=== PATIENT | male | born 1945 | race Caucasian/White ===

== ENCOUNTER 2017-11-09 08:05 | Emergency (ER) | payer OTHER ==
[~2017-11-09] VITALS: Ht 180.3 cm; Wt 90.7 kg
[~2017-11-09 08:05] MED LIST: HUMULIN N100 U/ML; HUMULIN R500 U/ML; LOTREL 10-20 MG1 CAP
== END 2017-11-09 17:00 | disposition home or self-care (01) ==
LOC: ER 08:05
DX: G45.8 Other transient cerebral ischemic attacks and related syndromes (principal); I63.59 Cerebral infarction due to unspecified occlusion or stenosis of other cerebral artery; R53.1 Weakness; E11.65 Type 2 diabetes mellitus with hyperglycemia

== ENCOUNTER 2017-11-10 02:20 | Inpatient (IN) | payer OTHER ==
[~2017-11-10] VITALS: Ht 180.3 cm; Wt 95.3 kg
[2017-11-17] MEDS ORDERED: COUMADIN3 MG PO (10:34)
[2017-11-17] MEDS ORDERED: LOSARTAN-HCTZ1 EAC2 PO (10:34)
[2017-11-17] MEDS ORDERED: LIPITOR40 MG PO (10:34)
== END 2017-11-17 14:00 | DRG 64 ==
LOC: ER 02:20 → MEDJ 15:22
PROC: B345ZZZ Ultrasonography of Bilateral Common Carotid Arteries (ICD-10-PCS; principal; 2017-11-10)
PROC: B348ZZZ Ultrasonography of Bilateral Internal Carotid Arteries (ICD-10-PCS; 2017-11-10)
PROC: B246ZZZ Ultrasonography of Right and Left Heart (ICD-10-PCS; 2017-11-10)
PROC: B030ZZZ Magnetic Resonance Imaging (MRI) of Brain (ICD-10-PCS; 2017-11-10)
PROC: B33RZZZ Magnetic Resonance Imaging (MRI) of Intracranial Arteries (ICD-10-PCS; 2017-11-11)
DX: I63.332 Cerebral infarction due to thrombosis of left posterior cerebral artery (principal); I63.011 Cerebral infarction due to thrombosis of right vertebral artery; I63.02 Cerebral infarction due to thrombosis of basilar artery; I16.9 Hypertensive crisis, unspecified; G81.94 Hemiplegia, unspecified affecting left nondominant side; L97.518 Non-pressure chronic ulcer of other part of right foot with other specified severity; R47.81 Slurred speech; I10 Essential (primary) hypertension; R42 Dizziness and giddiness; E11.621 Type 2 diabetes mellitus with foot ulcer
CPT/HCPCS: 70544; 70551

== ENCOUNTER 2018-02-16 11:01 | Inpatient (IN) | payer OTHER ==
[~2018-02-16] VITALS: Ht 180.3 cm; Wt 86.2 kg
[~2018-02-16 11:01] MED LIST changes: +COUMADIN3 MG PO; +LIPITOR40 MG PO; +LOSARTAN-HCTZ1 EAC2 PO
[2018-02-16] MEDS ORDERED: PRAVASTATIN SOD10 MG PO (11:19)
[2018-02-16] MEDS ORDERED: DAFLONEX-XL TA1 EACH (11:19)
[2018-02-16] MEDS ORDERED: AMOX-CLAV 875-1 EACH (11:20)
[2018-02-16] MEDS ORDERED: COZAAR25 MG PO (11:20)
[2018-03-09] MEDS ORDERED: LOSARTAN POTAS100 MG PO (13:37)
[2018-03-09] MEDS ORDERED: Lantus 1000 UNITS/10 SUBCUTANEO (13:37)
[2018-03-09] MEDS ORDERED: HumaLOG 100 UNIT/1 M SUBCUTANEO (13:37)
[2018-03-09] MEDS ORDERED: AMLODIPINE BESY10 MG PO (13:37)
[2018-03-09] MEDS ORDERED: ALPRAZOLAM0.25 MG PO (13:37)
[2018-03-09] MEDS ORDERED: CARdura 2MG TABLET PO (13:37)
== END 2018-03-09 19:25 | DRG 617 ==
LOC: ER 11:01 → MEDJ 21:00
PROVIDERS: Surgery
PROC: BQ3MZZZ Magnetic Resonance Imaging (MRI) of Left Foot (ICD-10-PCS; 2018-02-17)
PROC: 0Y6Q0Z0 Detachment at Left 1st Toe, Complete, Open Approach (ICD-10-PCS; principal; 2018-03-01 10:15)
PROC: 05H633Z Insertion of Infusion Device into Left Subclavian Vein, Percutaneous Approach (ICD-10-PCS; 2018-03-09)
DX: E11.69 Type 2 diabetes mellitus with other specified complication (principal); L03.116 Cellulitis of left lower limb; M86.172 Other acute osteomyelitis, left ankle and foot; I69.351 Hemiplegia and hemiparesis following cerebral infarction affecting right dominant side; B37.49 Other urogenital candidiasis; I16.9 Hypertensive crisis, unspecified; E11.52 Type 2 diabetes mellitus with diabetic peripheral angiopathy with gangrene; I96 Gangrene, not elsewhere classified; L97.528 Non-pressure chronic ulcer of other part of left foot with other specified severity; E11.628 Type 2 diabetes mellitus with other skin complications; E11.65 Type 2 diabetes mellitus with hyperglycemia; L03.032 Cellulitis of left toe; I10 Essential (primary) hypertension; B96.4 Proteus (mirabilis) (morganii) as the cause of diseases classified elsewhere; B95.2 Enterococcus as the cause of diseases classified elsewhere; B95.62 Methicillin resistant Staphylococcus aureus infection as the cause of diseases classified elsewhere; R42 Dizziness and giddiness; E11.621 Type 2 diabetes mellitus with foot ulcer

== ENCOUNTER → 2018-04-26 | Outpatient (CLI) | payer OTHER ==
[~2018-04-26] MED LIST changes: +ALPRAZOLAM0.25 MG PO; +AMLODIPINE BESY10 MG PO; +AMOX-CLAV 875-1 EACH; +CARdura 2MG TABLET PO; +COZAAR25 MG PO; +DAFLONEX-XL TA1 EACH; +HumaLOG 100 UNIT/1 M SUBCUTANEO; +LOSARTAN POTAS100 MG PO; +Lantus 1000 UNITS/10 SUBCUTANEO; +PRAVASTATIN SOD10 MG PO
== END | disposition home or self-care (01) ==
LOC: WOUND MED 08:41
DX: E11.621 Type 2 diabetes mellitus with foot ulcer (principal); L97.521 Non-pressure chronic ulcer of other part of left foot limited to breakdown of skin; I87.2 Venous insufficiency (chronic) (peripheral)
CPT/HCPCS: G0463; A4554; A4930; A6021; A6216; A6219

== ENCOUNTER → 2018-07-19 | Outpatient (CLI) | payer OTHER | END | disposition home or self-care (01) | LOC: WOUND MED 11:12 | DX: E11.622 Type 2 diabetes mellitus with other skin ulcer (principal); L02.212 Cutaneous abscess of back [any part, except buttock and flank] | CPT/HCPCS: 10060; G0463; A4554; A4930; A6196; A6216; A6219 ==

== ENCOUNTER → 2018-07-26 | Outpatient (CLI) | payer OTHER | END | disposition home or self-care (01) | LOC: WOUND MED 09:46 | DX: E11.622 Type 2 diabetes mellitus with other skin ulcer (principal); L02.212 Cutaneous abscess of back [any part, except buttock and flank] | CPT/HCPCS: G0463; A4554; A4930; A6196; A6216; A6219 ==

== ENCOUNTER → 2018-08-02 | Outpatient (CLI) | payer OTHER | END | disposition home or self-care (01) | LOC: WOUND MED 11:08 | DX: E11.622 Type 2 diabetes mellitus with other skin ulcer (principal); L02.212 Cutaneous abscess of back [any part, except buttock and flank] | CPT/HCPCS: A4554; A4930; A6216; G0463 ==

== ENCOUNTER 2023-01-18 08:47 | Inpatient (IN) | payer OTHER ==
[~2023-01-18] VITALS: Ht 180.3 cm; Wt 84.4 kg
[2023-01-26] MEDS ORDERED: LEVOFLOXACIN750 MG PO (12:03)
[2023-01-26] MEDS ORDERED: INTESTINEX680 M1 PO (12:05)
[2023-01-26] MEDS ORDERED: PROSCAR5 MG PO (12:08)
[2023-01-26] MEDS ORDERED: TAMS0.4C PO (12:08)
== END 2023-01-26 14:57 | disposition home or self-care (01) | DRG 166 ==
LOC: ER 08:47 → MEDJ 17:50 → SEC-K 19:50 → MEDJ 22:06
PROVIDERS: ADMIT Internal Medicine; ATTEND Internal Medicine
PROC: 8E0ZXY6 Isolation (ICD-10-PCS; 2023-01-18)
PROC: BB24ZZZ Computerized Tomography (CT Scan) of Bilateral Lungs (ICD-10-PCS; 2023-01-18)
PROC: 4A12X4Z Monitoring of Cardiac Electrical Activity, External Approach (ICD-10-PCS; 2023-01-18)
PROC: 0JBR0ZZ Excision of Left Foot Subcutaneous Tissue and Fascia, Open Approach (ICD-10-PCS; principal; 2023-01-20)
PROC: BW4GZZZ Ultrasonography of Pelvic Region (ICD-10-PCS; 2023-01-21)
PROC: BT43ZZZ Ultrasonography of Bilateral Kidneys (ICD-10-PCS; 2023-01-21)
PROC: 02HV33Z Insertion of Infusion Device into Superior Vena Cava, Percutaneous Approach (ICD-10-PCS; 2023-01-21)
PROC: 0JBR0ZZ Excision of Left Foot Subcutaneous Tissue and Fascia, Open Approach (ICD-10-PCS; 2023-01-26)
DX: U07.1 COVID-19 (principal); J12.82 Pneumonia due to coronavirus disease 2019; L89.623 Pressure ulcer of left heel, stage 3; E11.52 Type 2 diabetes mellitus with diabetic peripheral angiopathy with gangrene; I96 Gangrene, not elsewhere classified; L03.116 Cellulitis of left lower limb; J98.11 Atelectasis; I69.351 Hemiplegia and hemiparesis following cerebral infarction affecting right dominant side; N41.0 Acute prostatitis; N32.0 Bladder-neck obstruction; J98.8 Other specified respiratory disorders; E11.621 Type 2 diabetes mellitus with foot ulcer; E11.628 Type 2 diabetes mellitus with other skin complications; E11.65 Type 2 diabetes mellitus with hyperglycemia; B37.2 Candidiasis of skin and nail; B95.2 Enterococcus as the cause of diseases classified elsewhere; L89.152 Pressure ulcer of sacral region, stage 2; I25.10 Atherosclerotic heart disease of native coronary artery without angina pectoris; I10 Essential (primary) hypertension; L40.8 Other psoriasis; M25.511 Pain in right shoulder; R33.8 Other retention of urine; F17.210 Nicotine dependence, cigarettes, uncomplicated; Z79.4 Long term (current) use of insulin; Z89.611 Acquired absence of right leg above knee; Z89.412 Acquired absence of left great toe; Z74.01 Bed confinement status

== ENCOUNTER 2023-09-21 16:08 | Inpatient (IN) | payer OTHER ==
[~2023-09-21] VITALS: Ht 165.1 cm; Wt 128.8 kg
[~2023-09-21 16:08] MED LIST changes: +INTESTINEX680 M1 PO; +LEVOFLOXACIN750 MG PO; +PROSCAR5 MG PO; +TAMS0.4C PO
[2023-09-21 16:57] LABS: HEMATOCRIT 32.8 % (39.0-48.0); MEAN CELL VOLUME 81.5 fL (80.0-100.00); MEAN CORPUSCULAR HEMOGLOBIN 27.2 pg (27.00-32.0); MEAN CORPUSCULAR HGB CONC 33.4 g/dl (32.0-36.0); PH,URINE 7.5 (5.0-8.0); PLATELET COUNT 287 K/uL (150-450); RED BLOOD COUNT 4.03 M/uL (4.00-6.00); URINE APPEARANCE Cloudy; URINE BILIRRUBIN Negative (NEGATIVE); URINE BLOOD Moderate; URINE COLOR Yellow; URINE LEUKOCYTE Moderate; URINE NITRATE Positive
[2023-09-21 16:58] LABS: URINE RBC 125.3 uL (0.0-20.8); URINE WBC 420.5 uL (0.0-23.2)
[2023-09-21 17:01] LABS: URINE BACTERIA > 9821.5 uL (0.0-1933); URINE GLUCOSE >=1000 MG/DL (NEGATIVE); URINE PROTEIN 100 (NEGATIVE)
[2023-09-21 17:47] LABS: CALCIUM 8.7 mg/dL (8.5-10.1); CREATININE SERUM 0.97 mg/dL (0.70-1.30); GFR 75.05; POTASSIUM 3.08 mEq/L (3.5-5.1)
[2023-09-21 20:35] LABS: ABG PH 7.501 (7.35-7.45); ABG PO2 75.9 mmHg (80-100); ABG pCO2 33.3 mmHg (35-45); BASE EXCESS 2.8 mmol/l; BICARBONATE 25.4 mmol/l (23-25); SaO2 96.4 %; Tco2 26.4 mmol/l; allen test SATISFACTORY; o2 21 %; puncture site RADIAL RIGHT
[2023-09-22 00:50] LABS: INR 1.14; PARTIAL THROMBOPLASTIN TIME 31.7 SECONDS (22.0-34.0); PROTHROMBIN TIME 11.9 SECONDS (9.0-11.5)
[2023-09-23 07:13] LABS: ALBUMIN 3.1 gm/dL (3.4-5.0); BILIRUBIN TOTAL 0.65 mg/dL (0.3-1.2); CALCIUM 8.8 mg/dL (8.5-10.1); CREATININE SERUM 0.81 mg/dL (0.70-1.30); GFR 92.4; MAGNESIUM 2.2 mg/dL (1.8-2.4); POTASSIUM 3.74 mEq/L (3.5-5.1); TOTAL PROTEIN 7.1 gm/dL (6.4-8.2)
[2023-09-23 07:22] LABS: HEMATOCRIT 32.3 % (39.0-48.0); MEAN CELL VOLUME 80.6 fL (80.0-100.00); MEAN CORPUSCULAR HEMOGLOBIN 27.5 pg (27.00-32.0); MEAN CORPUSCULAR HGB CONC 34.1 g/dl (32.0-36.0); RED BLOOD COUNT 4.01 M/uL (4.00-6.00); RED CELL DISTRIBUTION WIDTH 15.8 % (11.5-14.5)
[2023-09-23 08:07] LABS: PLATELET COUNT 124 K/uL (150-450)
[2023-09-26 08:09] LABS: HEMATOCRIT 30.3 % (39.0-48.0); MEAN CELL VOLUME 82.1 fL (80.0-100.00); MEAN CORPUSCULAR HGB CONC 33.4 g/dl (32.0-36.0); PLATELET COUNT 252 K/uL (150-450); RED BLOOD COUNT 3.69 M/uL (4.00-6.00); RED CELL DISTRIBUTION WIDTH 15.3 % (11.5-14.5)
[2023-09-26 08:20] LABS: HEMOGLOBIN 10.1 g/dL (13-16.00); MEAN CORPUSCULAR HEMOGLOBIN 27.3 pg (27.00-32.0)
[2023-09-26 08:46] LABS: ALBUMIN 2.8 gm/dL (3.4-5.0); BILIRUBIN TOTAL 0.49 mg/dL (0.3-1.2); CALCIUM 8.6 mg/dL (8.5-10.1); CREATININE SERUM 0.63 mg/dL (0.70-1.30); GFR 123.49; GLOBULINA 3.7 G/DL (2.4-3.5); MAGNESIUM 1.8 mg/dL (1.8-2.4); PHOSPHOROUS 2.9 mg/dL (2.5-4.9); POTASSIUM 3.26 mEq/L (3.5-5.1); TOTAL PROTEIN 6.5 gm/dL (6.4-8.2)
[2023-09-28 08:34] LABS: HEMATOCRIT 31.8 % (39.0-48.0); HEMOGLOBIN 10.9 g/dL (13-16.00); MEAN CELL VOLUME 82.8 fL (80.0-100.00); MEAN CORPUSCULAR HEMOGLOBIN 28.4 pg (27.00-32.0); MEAN CORPUSCULAR HGB CONC 34.3 g/dl (32.0-36.0); PLATELET COUNT 293 K/uL (150-450); RED BLOOD COUNT 3.84 M/uL (4.00-6.00); RED CELL DISTRIBUTION WIDTH 15.6 % (11.5-14.5)
[2023-09-28 09:48] LABS: BILIRUBIN TOTAL 0.44 mg/dL (0.3-1.2); CALCIUM 9.1 mg/dL (8.5-10.1); CREATININE SERUM 0.68 mg/dL (0.70-1.30); GFR 113.07; GLOBULINA 3.9 G/DL (2.4-3.5); MAGNESIUM 1.6 mg/dL (1.8-2.4); PHOSPHOROUS 2.3 mg/dL (2.5-4.9); POTASSIUM 4.1 mEq/L (3.5-5.1); TOTAL PROTEIN 6.9 gm/dL (6.4-8.2)
[2023-09-30 07:38] LABS: HEMATOCRIT 30.7 % (39.0-48.0); HEMOGLOBIN 10.2 g/dL (13-16.00); MEAN CORPUSCULAR HEMOGLOBIN 26.9 pg (27.00-32.0); MEAN CORPUSCULAR HGB CONC 33.2 g/dl (32.0-36.0); PLATELET COUNT 219 K/uL (150-450); RED BLOOD COUNT 3.78 M/uL (4.00-6.00); RED CELL DISTRIBUTION WIDTH 15.8 % (11.5-14.5)
[2023-09-30 07:41] LABS: ERYTHROCYTE SEDIMENTATION RATE 81 mm/hr
[2023-09-30 08:07] LABS: BILIRUBIN TOTAL 0.4 mg/dL (0.3-1.2); CALCIUM 8.9 mg/dL (8.5-10.1); CREATININE SERUM 0.59 mg/dL (0.70-1.30); GFR 133.2; GLOBULINA 3.6 G/DL (2.4-3.5); MAGNESIUM 1.9 mg/dL (1.8-2.4); PHOSPHOROUS 2.7 mg/dL (2.5-4.9); POTASSIUM 3.79 mEq/L (3.5-5.1); TOTAL PROTEIN 6.6 gm/dL (6.4-8.2)
[2023-09-30 08:17] LABS: C-REACTIVE PROTEIN 1.1 MG/DL (0.00-0.29)
[2023-09-30] MEDS ORDERED: TAMS0.4C PO (11:44)
[2023-09-30] MEDS ORDERED: LIPITOR40 M1 PO (11:45)
[2023-09-30] MEDS ORDERED: LOSARTAN POTAS100 MG PO (11:45)
[2023-09-30] MEDS ORDERED: AMLODIPINE BESYL5 MG PO (11:45)
[2023-09-30] MEDS ORDERED: ST. JOSEPH ASPI81 M2 PO (11:45)
[2023-09-30] MEDS ORDERED: LOVENOX40 MG/0.4 SUBCUTANEO (11:45)
[2023-09-30] MEDS ORDERED: Lantus 1000 UNITS/10 SUBCUTANEO (11:46)
[2023-09-30] MEDS ORDERED: INSULIN LI100 UNIT/1 SUBCUTANEO (11:46)
[2023-09-30] MEDS ORDERED: PANTOPRAZOLE SO40 MG PO (11:46)
[2023-09-30] MEDS ORDERED: INTEGRA PLUS C1 EACH PO (11:48)
[2023-09-30] MEDS ORDERED: CEFTRIAXONE2 GM IV (11:48)
[2023-09-30] MEDS ORDERED: COLACE100 MG PO (11:49)
== END 2023-10-01 14:21 | DRG 872 ==
LOC: ER 16:08 → SURH 22:16 → MEDJ 09-28 13:53 → MEDI 09-30 08:31
PROVIDERS: General Practice; ADMIT Internal Medicine; ATTEND Internal Medicine
PROC: BW28ZZZ Computerized Tomography (CT Scan) of Head (ICD-10-PCS; principal; 2023-09-21)
PROC: BQ3FYZZ Magnetic Resonance Imaging (MRI) of Left Lower Leg using Other Contrast (ICD-10-PCS; 2023-09-23)
PROC: B24BZZZ Ultrasonography of Heart with Aorta (ICD-10-PCS; 2023-09-28)
DX: A41.9 Sepsis, unspecified organism (principal); N39.0 Urinary tract infection, site not specified; M86.8X7 Other osteomyelitis, ankle and foot; I69.351 Hemiplegia and hemiparesis following cerebral infarction affecting right dominant side; L97.429 Non-pressure chronic ulcer of left heel and midfoot with unspecified severity; E16.2 Hypoglycemia, unspecified; E78.5 Hyperlipidemia, unspecified; E87.6 Hypokalemia; E11.621 Type 2 diabetes mellitus with foot ulcer; D64.9 Anemia, unspecified; E11.65 Type 2 diabetes mellitus with hyperglycemia; Z79.4 Long term (current) use of insulin; E11.69 Type 2 diabetes mellitus with other specified complication; B95.61 Methicillin susceptible Staphylococcus aureus infection as the cause of diseases classified elsewhere; I25.10 Atherosclerotic heart disease of native coronary artery without angina pectoris; R41.82 Altered mental status, unspecified; I73.9 Peripheral vascular disease, unspecified; I87.8 Other specified disorders of veins

== ENCOUNTER 2023-11-20 08:16 | Emergency (ER) | payer OTHER ==
[~2023-11-20] VITALS: Ht 180.3 cm; Wt 73.9 kg
[~2023-11-20 08:16] MED LIST changes: +AMLODIPINE BESYL5 MG PO; +CEFTRIAXONE2 GM IV; +COLACE100 MG PO; +INSULIN LI100 UNIT/1 SUBCUTANEO; +INTEGRA PLUS C1 EACH PO; +LIPITOR40 M1 PO; +LOVENOX40 MG/0.4 SUBCUTANEO; +PANTOPRAZOLE SO40 MG PO; +ST. JOSEPH ASPI81 M2 PO
[2023-11-20 09:44] LABS: HEMATOCRIT 31.4 % (39.0-48.0); HEMOGLOBIN 10.7 g/dL (13-16.00); MEAN CELL VOLUME 82.7 fL (80.0-100.00); MEAN CORPUSCULAR HEMOGLOBIN 28.2 pg (27.00-32.0); MEAN CORPUSCULAR HGB CONC 34.1 g/dl (32.0-36.0); PLATELET COUNT 246 K/uL (150-450); RED BLOOD COUNT 3.79 M/uL (4.00-6.00)
[2023-11-20 09:51] LABS: URINE APPEARANCE Turbid; URINE BILIRRUBIN Negative (NEGATIVE); URINE BLOOD Moderate; URINE COLOR Orange; URINE LEUKOCYTE Large; URINE NITRATE Positive
[2023-11-20 10:08] LABS: ALBUMIN 3.2 gm/dL (3.4-5.0); ALKALINE PHOSPHATASE 137 U/L (50-136); ALT/SGPT 26 U/L (12-78); ANION GAP 10 (10.0-20.0); AST/SGOT 18 U/L (15-37); BILIRUBIN TOTAL 0.59 mg/dL (0.3-1.2); BLOOD UREA NITROGEN 12 mg/dL (7-18); BUN CREA RATIO 12 (7.0-25.0); CARBON DIOXIDE 25 mEq/L (21-32); CHLORIDE 107 mmol/L (98-107); CREATININE SERUM 0.99 mg/dL (0.70-1.30); GLUCOSE FASTING 123 mg/dL (65-100); OSMOLALITY SERUM 277 MOSM/KG (275-295); POTASSIUM 4.22 mEq/L (3.5-5.1); SODIUM 138 mmol/L (136-145); TOTAL PROTEIN 7.8 gm/dL (6.4-8.2)
[2023-11-20 10:14] LABS: URINE BACTERIA 522.8 uL (0.0-1933); URINE EPITHELIAL CELLS 22.1 uL (0.0-38.8); URINE RBC 52.5 uL (0.0-20.8)
[2023-11-20 10:21] LABS: BILIRUBIN,CONJUGATED < 0.10 mg/dL (0.0-0.2); BILIRUBIN,UNCONJUGATED 0.49 mg/dL (0.0-0.6)
[2023-11-20 10:35] LABS: URINE CRYSTALS NEGATIVE /HPF; URINE GLUCOSE 100 MG/DL (NEGATIVE); URINE MUCUS HEAVY; URINE PROTEIN 100 (NEGATIVE); URINE WBC > 5548.3 uL (0.0-23.2); URINE YEAST NEGATIVE /hpf
== END 2023-11-20 12:05 | disposition home or self-care (01) ==
LOC: ER 08:16
PROVIDERS: General Practice
DX: N39.0 Urinary tract infection, site not specified (principal); R10.2 Pelvic and perineal pain; R10.9 Unspecified abdominal pain; I10 Essential (primary) hypertension; E11.9 Type 2 diabetes mellitus without complications; Z79.4 Long term (current) use of insulin
CPT/HCPCS: 36415; 96365; 99282; J0696

== ENCOUNTER 2023-11-23 10:59 | Inpatient (IN) | payer OTHER ==
[~2023-11-23] VITALS: Ht 180.3 cm; Wt 73.9 kg
[2023-11-23 13:24] LABS: HEMATOCRIT 32.6 % (39.0-48.0); HEMOGLOBIN 11.1 g/dL (13-16.00); MEAN CELL VOLUME 81.2 fL (80.0-100.00); MEAN CORPUSCULAR HEMOGLOBIN 27.6 pg (27.00-32.0); PLATELET COUNT 233 K/uL (150-450); RED BLOOD COUNT 4.01 M/uL (4.00-6.00); RED CELL DISTRIBUTION WIDTH 15.5 % (11.5-14.5)
[2023-11-23 14:09] LABS: CALCIUM 9.1 mg/dL (8.5-10.1); CREATININE SERUM 1.17 mg/dL (0.70-1.30); GFR 60.45; POTASSIUM 3.9 mEq/L (3.5-5.1)
[2023-11-23 14:11] LABS: PH,URINE 5.5 (5.0-8.0); URINE APPEARANCE Turbid; URINE BILIRRUBIN Negative (NEGATIVE); URINE BLOOD Large; URINE COLOR Yellow; URINE GLUCOSE Negative (NEGATIVE); URINE LEUKOCYTE Large; URINE NITRATE Negative; URINE UROBILINOGEN 0.2 E.U./dl
[2023-11-23 14:13] LABS: URINE BACTERIA 2931.9 uL (0.0-1933); URINE EPITHELIAL CELLS 56.3 uL (0.0-38.8); URINE RBC 1452.3 uL (0.0-20.8)
[2023-11-23 15:09] LABS: URINE PROTEIN 100 (NEGATIVE); URINE WBC > 5548.3 uL (0.0-23.2)
[2023-11-23 21:57] LABS: INR 1.12; PARTIAL THROMBOPLASTIN TIME 35.1 SECONDS (22.0-34.0); PROTHROMBIN TIME 11.7 SECONDS (9.0-11.5)
[2023-11-25 14:38] LABS: HEMATOCRIT 31.5 % (39.0-48.0); HEMOGLOBIN 10.6 g/dL (13-16.00); MEAN CELL VOLUME 82.9 fL (80.0-100.00); MEAN CORPUSCULAR HEMOGLOBIN 27.9 pg (27.00-32.0); MEAN CORPUSCULAR HGB CONC 33.7 g/dl (32.0-36.0); PLATELET COUNT 239 K/uL (150-450); RED CELL DISTRIBUTION WIDTH 15.7 % (11.5-14.5)
[2023-11-25 15:22] LABS: ALBUMIN 3.2 gm/dL (3.4-5.0); BILIRUBIN TOTAL 0.43 mg/dL (0.3-1.2); CREATININE SERUM 1.03 mg/dL (0.70-1.30); GFR 70.03; GLOBULINA 3.9 G/DL (2.4-3.5); POTASSIUM 4.08 mEq/L (3.5-5.1); TOTAL PROTEIN 7.1 gm/dL (6.4-8.2)
[2023-11-25 15:48] LABS: C-REACTIVE PROTEIN 3.66 MG/DL (0.00-0.29); PROSTATIC SPECIFIC ANTIGEN 5.96 NG/ML (0.010-4.00)
[2023-11-29 06:08] LABS: HEMOGLOBIN 10.4 g/dL (13-16.00); MEAN CELL VOLUME 81.4 fL (80.0-100.00); MEAN CORPUSCULAR HEMOGLOBIN 27.2 pg (27.00-32.0); MEAN CORPUSCULAR HGB CONC 33.5 g/dl (32.0-36.0); PLATELET COUNT 255 K/uL (150-450); RED BLOOD COUNT 3.81 M/uL (4.00-6.00); RED CELL DISTRIBUTION WIDTH 15.4 % (11.5-14.5)
[2023-11-29 06:41] LABS: ALBUMIN 2.9 gm/dL (3.4-5.0); BILIRUBIN TOTAL 0.41 mg/dL (0.3-1.2); CALCIUM 8.8 mg/dL (8.5-10.1); CREATININE SERUM 0.96 mg/dL (0.70-1.30); GFR 75.95; GLOBULINA 3.8 G/DL (2.4-3.5); MAGNESIUM 1.8 mg/dL (1.8-2.4); PHOSPHOROUS 2.8 mg/dL (2.5-4.9); POTASSIUM 3.26 mEq/L (3.5-5.1); TOTAL PROTEIN 6.7 gm/dL (6.4-8.2)
[2023-11-29 06:44] LABS: C-REACTIVE PROTEIN 2.23 MG/DL (0.00-0.29)
[2023-11-29 08:17] LABS: PH,URINE 5.5 (5.0-8.0); URINE APPEARANCE Turbid; URINE BILIRRUBIN Negative (NEGATIVE); URINE BLOOD Moderate; URINE COLOR Yellow; URINE GLUCOSE Negative (NEGATIVE); URINE LEUKOCYTE Large; URINE NITRATE Negative; URINE UROBILINOGEN 0.2 E.U./dl
[2023-11-29 08:18] LABS: URINE BACTERIA 1382.1 uL (0.0-1933); URINE EPITHELIAL CELLS 21.1 uL (0.0-38.8); URINE RBC 319.1 uL (0.0-20.8)
[2023-11-29 09:02] LABS: URINE PROTEIN 100 (NEGATIVE); URINE WBC > 5548.3 uL (0.0-23.2)
[2023-11-29 09:03] LABS: URINE YEAST FEW /hpf
[2023-11-29 12:07] LABS: hav igm Negative (Negative); hcv Non Reactive (Non Reactive); hep b c Negative (Negative)
[2023-12-01 12:42] LABS: CALCIUM 8.7 mg/dL (8.5-10.1); CREATININE SERUM 0.93 mg/dL (0.70-1.30); GFR 78.78; POTASSIUM 3.81 mEq/L (3.5-5.1)
[2023-12-02 06:55] LABS: HEMATOCRIT 30.4 % (39.0-48.0); HEMOGLOBIN 10.4 g/dL (13-16.00); MEAN CELL VOLUME 80.2 fL (80.0-100.00); MEAN CORPUSCULAR HEMOGLOBIN 27.3 pg (27.00-32.0); MEAN CORPUSCULAR HGB CONC 34.1 g/dl (32.0-36.0); PLATELET COUNT 239 K/uL (150-450); RED BLOOD COUNT 3.79 M/uL (4.00-6.00); RED CELL DISTRIBUTION WIDTH 15.4 % (11.5-14.5)
== END 2023-12-02 20:10 | disposition home or self-care (01) | DRG 690 ==
LOC: ER 10:59 → MEDI 20:38 → MEDJ 11-26 23:32
PROVIDERS: General Practice; Internal Medicine Infectious Disease; ADMIT Internal Medicine; ATTEND Internal Medicine
PROC: BW21ZZZ Computerized Tomography (CT Scan) of Abdomen and Pelvis (ICD-10-PCS; principal; 2023-11-23)
DX: N39.0 Urinary tract infection, site not specified (principal); N41.9 Inflammatory disease of prostate, unspecified; I10 Essential (primary) hypertension

== ENCOUNTER 2024-04-19 11:59 | Inpatient (IN) | payer OTHER ==
[~2024-04-19] VITALS: Ht 180.3 cm; Wt 77.1 kg
[2024-04-19] MEDS ORDERED: LANTUS SOL100 UNIT/1 (12:10)
[2024-04-19] MEDS ORDERED: PROTONIX40 MG (12:10)
[2024-04-19] MEDS ORDERED: COZAAR100 MG (12:10)
[2024-04-19] MEDS ORDERED: FINASTERIDE5 MG (12:10)
[2024-04-19] MEDS ORDERED: HUMALOG100 UNIT/1 (12:10)
[2024-04-19] MEDS ORDERED: 0.9 % SODIUM CHLORIDE 1,000 ML IV SCH ×2 (12:30→17:30)
[2024-04-19 13:13] LABS: HEMATOCRIT 33.3 % (39.0-48.0); HEMOGLOBIN 11.4 g/dL (13-16.00); MEAN CELL VOLUME 81.9 fL (80.0-100.00); MEAN CORPUSCULAR HEMOGLOBIN 28.1 pg (27.00-32.0); MEAN CORPUSCULAR HGB CONC 34.3 g/dl (32.0-36.0); PLATELET COUNT 216 K/uL (150-450); RED BLOOD COUNT 4.07 M/uL (4.00-6.00); RED CELL DISTRIBUTION WIDTH 15.8 % (11.5-14.5); URINE APPEARANCE Turbid; URINE BILIRRUBIN Negative (NEGATIVE); URINE BLOOD Moderate; URINE COLOR Yellow; URINE GLUCOSE Negative (NEGATIVE); URINE LEUKOCYTE Large; URINE NITRATE Negative; URINE UROBILINOGEN 0.2 E.U./dl
[2024-04-19 13:17] LABS: URINE EPITHELIAL CELLS 2.6 uL (0.0-38.8); URINE RBC 694.3 uL (0.0-20.8); URINE WBC 1490.8 uL (0.0-23.2)
[2024-04-19 13:26] LABS: CALCIUM 9.6 mg/dL (8.5-10.1); CREATININE SERUM 1.29 mg/dL (0.70-1.30); GFR 54.01; POTASSIUM 3.96 mEq/L (3.5-5.1)
[2024-04-19 13:39] LABS: URINE BACTERIA > 9821.5 uL (0.0-1933); URINE PROTEIN 300 (NEGATIVE)
[2024-04-19] MEDS ORDERED: ONDANSETRON HCL 2 MG/ML VIAL IV STA (13:47)
[2024-04-19] MEDS ORDERED: ONDANSETRON HCL 2 MG/ML VIAL ONE (13:49)
[2024-04-19] MEDS ORDERED: KETOROLAC TROMETHAMINE 30 MG VIAL ONE (13:56)
[2024-04-19] MEDS ORDERED: KETOROLAC TROMETHAMINE 30 MG VIAL IV ONE (14:00)
[2024-04-19] MEDS ORDERED: CEFTRIAXONE SODIUM 1,000 MG VIAL IV ONE (15:30)
[2024-04-19] MEDS ORDERED: CEFTRIAXONE SODIUM 1,000 MG VIAL ONE (15:43)
[2024-04-19] MEDS ORDERED: FAMOTIDINE/PF 20 MG in 0.9 % SODIUM CHLORIDE 8 ML IV PUSH SCH (17:37)
[2024-04-19] MEDS ORDERED: ONDANSETRON HCL 4 MG in 0.9 % SODIUM CHLORIDE 50 ML IV PRN (17:45)
[2024-04-19] MEDS ORDERED: DEXTROSE 50 % IN WATER 0.5 G/ML DISP.SYRIN IV PRN (17:45)
[2024-04-19] MEDS ORDERED: ACETAMINOPHEN 500 MG GEL..CAP PO PRN (17:45)
[2024-04-19] MEDS ORDERED: INSULIN LISPRO 1,000 UNIT/10 ML UNITS SUBCUTANEO PRN (17:45)
[2024-04-19] MEDS ORDERED: FAMOTIDINE/PF 20 MG/2 ML VIAL ONE (18:03)
[2024-04-19 19:29] LABS: INR 1.08; PARTIAL THROMBOPLASTIN TIME 31.6 SECONDS (22.0-34.0); PROTHROMBIN TIME 11.3 SECONDS (9.0-11.5)
[2024-04-20] MEDS ORDERED: TAMSULOSIN HCL 0.4 MG CAP PO SCH (09:00)
[2024-04-20] MEDS ORDERED: FINASTERIDE 5 MG TABLET PO SCH (09:00)
[2024-04-20] MEDS ORDERED: CEFTRIAXONE SODIUM 2,000 MG in 0.9 % SODIUM CHLORIDE 100 ML IV SCH (09:00)
[2024-04-20] MEDS ORDERED: LOSARTAN POTASSIUM 100 MG TABLET PO SCH (09:00)
[2024-04-20] MEDS ORDERED: VANCOMYCIN HCL 1,000 MG VIAL IV SCH (17:00)
[2024-04-21 07:41] LABS: BILIRUBIN TOTAL 0.27 mg/dL (0.3-1.2); CALCIUM 8.8 mg/dL (8.5-10.1); CREATININE SERUM 0.97 mg/dL (0.70-1.30); GFR 75.05; GLOBULINA 3.7 G/DL (2.4-3.5); MAGNESIUM 1.9 mg/dL (1.8-2.4); POTASSIUM 3.98 mEq/L (3.5-5.1); TOTAL PROTEIN 6.7 gm/dL (6.4-8.2)
[2024-04-21] MEDS ORDERED: FAMOTIDINE/PF 20 MG/2 ML VIAL ONE (07:55)
[2024-04-21 08:44] LABS: HEMATOCRIT 29.8 % (39.0-48.0); HEMOGLOBIN 10.1 g/dL (13-16.00); MEAN CELL VOLUME 82.4 fL (80.0-100.00); MEAN CORPUSCULAR HEMOGLOBIN 27.9 pg (27.00-32.0); MEAN CORPUSCULAR HGB CONC 33.9 g/dl (32.0-36.0); PLATELET COUNT 138 K/uL (150-450); RED BLOOD COUNT 3.61 M/uL (4.00-6.00)
[2024-04-21 09:04] LABS: PH,URINE 7.5 (5.0-8.0); URINE APPEARANCE Turbid; URINE BILIRRUBIN Negative (NEGATIVE); URINE BLOOD Large; URINE COLOR Yellow; URINE GLUCOSE Negative (NEGATIVE); URINE LEUKOCYTE Large; URINE NITRATE Positive; URINE UROBILINOGEN 0.2 E.U./dl
[2024-04-21 09:07] LABS: C-REACTIVE PROTEIN 1.93 MG/DL (0.00-0.29)
[2024-04-21 09:34] LABS: URINE BACTERIA > 9821.5 uL (0.0-1933); URINE PROTEIN 100 (NEGATIVE)
[2024-04-22] MEDS ORDERED: FAMOTIDINE/PF 20 MG/2 ML VIAL ONE (08:17)
[2024-04-23] MEDS ORDERED: AMLODIPINE BESYLATE 2.5 MG TABLET PO SCH (09:49)
[2024-04-23 17:20] LABS: PH,URINE 5.5 (5.0-8.0); URINE APPEARANCE Cloudy; URINE BILIRRUBIN Negative (NEGATIVE); URINE BLOOD Moderate; URINE COLOR Yellow; URINE GLUCOSE Negative (NEGATIVE); URINE LEUKOCYTE Large; URINE NITRATE Negative; URINE UROBILINOGEN 0.2 E.U./dl
[2024-04-23 17:25] LABS: URINE BACTERIA 3047.7 uL (0.0-1933); URINE EPITHELIAL CELLS 10.5 uL (0.0-38.8); URINE RBC 77.2 uL (0.0-20.8); URINE WBC 1597.7 uL (0.0-23.2)
[2024-04-23 17:41] LABS: URINE PROTEIN 100 (NEGATIVE); URINE YEAST MODERATE /hpf
[2024-04-23] MEDS ORDERED: MEROPENEM 500 MG/VIAL VIAL IV SCH (18:00)
[2024-04-24 05:14] LABS: HEMATOCRIT 29.8 % (39.0-48.0); MEAN CELL VOLUME 81.4 fL (80.0-100.00); MEAN CORPUSCULAR HEMOGLOBIN 28.6 pg (27.00-32.0); MEAN CORPUSCULAR HGB CONC 35.2 g/dl (32.0-36.0); PLATELET COUNT 233 K/uL (150-450); RED BLOOD COUNT 3.66 M/uL (4.00-6.00); RED CELL DISTRIBUTION WIDTH 15.9 % (11.5-14.5)
[2024-04-24 05:17] LABS: HEMOGLOBIN 10.5 g/dL (13-16.00)
[2024-04-24 05:39] LABS: BILIRUBIN TOTAL 0.24 mg/dL (0.3-1.2); CREATININE SERUM 0.73 mg/dL (0.70-1.30); GFR 104.18; GLOBULINA 3.9 G/DL (2.4-3.5); MAGNESIUM 1.8 mg/dL (1.8-2.4); PHOSPHOROUS 3.1 mg/dL (2.5-4.9); POTASSIUM 3.74 mEq/L (3.5-5.1); TOTAL PROTEIN 6.9 gm/dL (6.4-8.2)
[2024-04-24 05:42] LABS: C-REACTIVE PROTEIN 0.86 MG/DL (0.00-0.29)
[2024-04-24] MEDS ORDERED: ZINC OXIDE 30 GM,SILVER SULFADIAZINE 50 GM,NYSTATIN 30 GM TOP SCH (09:00)
[2024-04-24] MEDS ORDERED: FAMOtidine 20 MG TABLET PO SCH (21:00)
[2024-04-25] MEDS ORDERED: VANCOMYCIN HCL 5 MG/ML REDILUIDO IV SCH (17:00)
[2024-04-26 08:04] LABS: URINE APPEARANCE Cloudy; URINE BILIRRUBIN Negative (NEGATIVE); URINE BLOOD Moderate; URINE COLOR Yellow; URINE GLUCOSE Negative (NEGATIVE); URINE LEUKOCYTE Large; URINE NITRATE Negative; URINE PROTEIN 30 (NEGATIVE); URINE UROBILINOGEN 0.2 E.U./dl
[2024-04-26 08:11] LABS: URINE BACTERIA 715.5 uL (0.0-1933); URINE EPITHELIAL CELLS 7.2 uL (0.0-38.8); URINE RBC 13.8 uL (0.0-20.8)
[2024-04-28 08:23] LABS: HEMATOCRIT 29.7 % (39.0-48.0); HEMOGLOBIN 10.3 g/dL (13-16.00); MEAN CELL VOLUME 81.6 fL (80.0-100.00); MEAN CORPUSCULAR HEMOGLOBIN 28.3 pg (27.00-32.0); MEAN CORPUSCULAR HGB CONC 34.7 g/dl (32.0-36.0); PLATELET COUNT 233 K/uL (150-450); RED BLOOD COUNT 3.64 M/uL (4.00-6.00); RED CELL DISTRIBUTION WIDTH 15.6 % (11.5-14.5)
[2024-04-28 09:45] LABS: ALBUMIN 2.9 gm/dL (3.4-5.0); BILIRUBIN TOTAL 0.41 mg/dL (0.3-1.2); CALCIUM 8.7 mg/dL (8.5-10.1); CREATININE SERUM 0.6 mg/dL (0.70-1.30); GFR 130.64; GLOBULINA 3.9 G/DL (2.4-3.5); MAGNESIUM 1.8 mg/dL (1.8-2.4); PHOSPHOROUS 3.3 mg/dL (2.5-4.9); POTASSIUM 3.85 mEq/L (3.5-5.1); TOTAL PROTEIN 6.8 gm/dL (6.4-8.2)
[2024-04-28 09:46] LABS: C-REACTIVE PROTEIN 0.85 MG/DL (0.00-0.29)
== END 2024-04-30 18:34 | disposition home or self-care (01) | DRG 699 ==
LOC: ER 11:59 → MEDI 17:50
PROVIDERS: Emergency Medicine; General Practice; Internal Medicine Infectious Disease; ADMIT Internal Medicine; ATTEND Internal Medicine
PROC: 0T2BX0Z Change Drainage Device in Bladder, External Approach (ICD-10-PCS; principal; 2024-04-25)
DX: T83.511A Infection and inflammatory reaction due to indwelling urethral catheter, initial encounter (principal); B37.49 Other urogenital candidiasis; N17.9 Acute kidney failure, unspecified; R33.8 Other retention of urine; N40.1 Benign prostatic hyperplasia with lower urinary tract symptoms; I12.9 Hypertensive chronic kidney disease with stage 1 through stage 4 chronic kidney disease, or unspecified chronic kidney disease; E11.22 Type 2 diabetes mellitus with diabetic chronic kidney disease; N18.9 Chronic kidney disease, unspecified; B95.2 Enterococcus as the cause of diseases classified elsewhere; Z74.01 Bed confinement status; Z79.4 Long term (current) use of insulin

== ENCOUNTER 2024-07-04 09:20 | Emergency (ER) | payer OTHER ==
[~2024-07-04] VITALS: Ht 165.1 cm; Wt 61.2 kg
[~2024-07-04 09:20] MED LIST changes: +COZAAR100 MG; +FINASTERIDE5 MG; +HUMALOG100 UNIT/1; +LANTUS SOL100 UNIT/1; +PROTONIX40 MG
[2024-07-04 09:49] LABS: HEMOGLOBIN 10.9 g/dL (13-16.00); MEAN CELL VOLUME 82.8 fL (80.0-100.00); MEAN CORPUSCULAR HEMOGLOBIN 28.2 pg (27.00-32.0); PLATELET COUNT 178 K/uL (150-450); RED BLOOD COUNT 3.87 M/uL (4.00-6.00); RED CELL DISTRIBUTION WIDTH 14.8 % (11.5-14.5)
[2024-07-04 10:32] LABS: ALBUMIN 3.4 gm/dL (3.4-5.0); BILIRUBIN TOTAL 0.41 mg/dL (0.3-1.2); CALCIUM 9.2 mg/dL (8.5-10.1); CREATININE SERUM 1.01 mg/dL (0.70-1.30); GFR 71.63; GLOBULINA 4.1 G/DL (2.4-3.5); POTASSIUM 4.27 mEq/L (3.5-5.1); TOTAL PROTEIN 7.5 gm/dL (6.4-8.2)
[2024-07-04 11:15] LABS: PH,URINE 6.5 (5.0-8.0); URINE APPEARANCE Turbid; URINE BILIRRUBIN Negative (NEGATIVE); URINE BLOOD Large; URINE COLOR Yellow; URINE GLUCOSE Negative (NEGATIVE); URINE KETONE Negative (NEGATIVE); URINE LEUKOCYTE Large; URINE NITRATE Negative; URINE PROTEIN 30 (NEGATIVE); URINE UROBILINOGEN 0.2 E.U./dl
[2024-07-04 11:19] LABS: URINE BACTERIA 4624.1 uL (0.0-1933); URINE CAST 1.88 uL (0.0-1.40); URINE EPITHELIAL CELLS 28.9 uL (0.0-38.8)
[2024-07-04 11:25] LABS: URINE WBC > 5548.3 uL (0.0-23.2)
== END 2024-07-04 12:28 | disposition home or self-care (01) ==
LOC: ER 09:20
PROVIDERS: General Practice
DX: R00.1 Bradycardia, unspecified (principal); E11.9 Type 2 diabetes mellitus without complications; Z79.4 Long term (current) use of insulin; I10 Essential (primary) hypertension; Z86.73 Personal history of transient ischemic attack (TIA), and cerebral infarction without residual deficits; Z89.611 Acquired absence of right leg above knee; N39.0 Urinary tract infection, site not specified

== ENCOUNTER 2024-08-07 18:18 | Emergency (ER) | payer OTHER ==
[~2024-08-07] VITALS: Ht 162.6 cm; Wt 54.4 kg
[2024-08-07] MEDS ORDERED: 0.9 % SODIUM CHLORIDE 1,000 ML IV ONE (19:15)
[2024-08-07] MEDS ORDERED: FAMOtidine 10 MG/ML (4ML VIAL) IV ONE (19:15)
[2024-08-07 20:15] LABS: HEMATOCRIT 33.2 % (39.0-48.0); HEMOGLOBIN 11.1 g/dL (13-16.00); MEAN CELL VOLUME 83.9 fL (80.0-100.00); MEAN CORPUSCULAR HGB CONC 33.4 g/dl (32.0-36.0); PLATELET COUNT 219 K/uL (150-450); RED BLOOD COUNT 3.96 M/uL (4.00-6.00); RED CELL DISTRIBUTION WIDTH 14.2 % (11.5-14.5)
[2024-08-07 20:29] LABS: INR 1.14; PARTIAL THROMBOPLASTIN TIME 33.1 SECONDS (22.0-34.0); PROTHROMBIN TIME 12.3 SECONDS (9.0-11.5)
[2024-08-07 20:36] LABS: ALBUMIN 3.6 gm/dL (3.4-5.0); CALCIUM 9.4 mg/dL (8.5-10.1); CREATININE SERUM 1.36 mg/dL (0.70-1.30); GFR 50.68; GLOBULINA 4.7 G/DL (2.4-3.5); POTASSIUM 4.38 mEq/L (3.5-5.1); TOTAL PROTEIN 8.3 gm/dL (6.4-8.2)
[2024-08-07] MEDS ORDERED: INSULIN REGULAR, HUMAN 1,000 UNIT/10 ML UNITS SUBCUTANEO ONE (21:00)
[2024-08-08] MEDS ORDERED: CEFTRIAXONE SODIUM 1,000 MG VIAL IV STA (03:33)
[2024-08-08 04:00] LABS: PH,URINE 5.5 (5.0-8.0); URINE APPEARANCE Turbid; URINE BILIRRUBIN Negative (NEGATIVE); URINE BLOOD Moderate; URINE COLOR Yellow; URINE GLUCOSE Negative (NEGATIVE); URINE KETONE Negative (NEGATIVE); URINE LEUKOCYTE Large; URINE NITRATE Negative; URINE UROBILINOGEN 0.2 E.U./dl
[2024-08-08 04:01] LABS: URINE BACTERIA 1486.7 uL (0.0-1933); URINE EPITHELIAL CELLS 34.7 uL (0.0-38.8); URINE RBC 8.8 uL (0.0-20.8)
[2024-08-08 04:12] LABS: URINE PROTEIN 100 (NEGATIVE)
[2024-08-08 04:13] LABS: URINE CAST 0.23 uL (0.0-1.40); URINE WBC > 5548.3 uL (0.0-23.2); URINE YEAST FEW /hpf
[2024-08-08] MEDS ORDERED: PEPCID40 MG PO (05:48)
[2024-08-08] MEDS ORDERED: LEVSIN/SL0.125 MG SL (05:48)
[2024-08-08] MEDS ORDERED: CEPHALEXIN500 MG PO ×2 (05:49)
== END 2024-08-08 12:15 ==
LOC: ER 18:20
PROVIDERS: General Practice
DX: R10.11 Right upper quadrant pain (principal); I69.351 Hemiplegia and hemiparesis following cerebral infarction affecting right dominant side; I10 Essential (primary) hypertension; E11.65 Type 2 diabetes mellitus with hyperglycemia; Z79.4 Long term (current) use of insulin; K80.20 Calculus of gallbladder without cholecystitis without obstruction; N32.3 Diverticulum of bladder; N21.0 Calculus in bladder
CPT/HCPCS: 71045; 74177; 76700; 93005; 96365; 96366; 99284; J0696; J1815; J3490; J7030; Q9965

== ENCOUNTER 2024-08-30 14:36 | Inpatient (IN) | payer OTHER ==
[~2024-08-30] VITALS: Ht 180.3 cm; Wt 73.9 kg
[~2024-08-30 14:36] MED LIST changes: +CEPHALEXIN500 MG PO; +LEVSIN/SL0.125 MG SL; +PEPCID40 MG PO
--- NOTE | 2024-08-30 15:47 | NUR ---
SE RECIBE PTE ALERTA Y ORIENTADO ELCUAL REFIERE VENIR POR INFECCION DE ORINA Y MUCHO ARDOR AL ORINAR. PTE REFIERE ESTAR TOMANDO AMOXYCILIN. SE MIDEN S/V A PTE Y SE UBICA.
[2024-08-30 17:24] LABS: HEMATOCRIT 31.3 % (39.0-48.0); HEMOGLOBIN 10.7 g/dL (13-16.00); MEAN CELL VOLUME 82.8 fL (80.0-100.00); MEAN CORPUSCULAR HEMOGLOBIN 28.2 pg (27.00-32.0); MEAN CORPUSCULAR HGB CONC 34.1 g/dl (32.0-36.0); PLATELET COUNT 258 K/uL (150-450); RED BLOOD COUNT 3.78 M/uL (4.00-6.00); RED CELL DISTRIBUTION WIDTH 14.3 % (11.5-14.5)
--- NOTE | 2024-08-30 17:27 | NUR ---
SE ORIENTA A PACIENTE SOBRE TX MEDICO, REFIERE ENTENDER. SE REALIZAN MUESTRAS DE LABORATORIO BAJO MEDIDAS ASEPTICAS. PACIENTE MANEJADO POR . PENDIENTE RE-EVALUACION MEDICA.
[2024-08-30 17:54] LABS: PH,URINE 5.5 (5.0-8.0); URINE APPEARANCE Turbid; URINE BILIRRUBIN Negative (NEGATIVE); URINE BLOOD Large; URINE COLOR Yellow; URINE GLUCOSE Negative (NEGATIVE); URINE KETONE Trace (NEGATIVE); URINE LEUKOCYTE Large; URINE NITRATE Negative; URINE UROBILINOGEN 0.2 E.U./dl
[2024-08-30 17:55] LABS: URINE BACTERIA 1757.6 uL (0.0-1933); URINE EPITHELIAL CELLS 55.2 uL (0.0-38.8); URINE RBC 171.2 uL (0.0-20.8)
[2024-08-30 18:14] LABS: ALBUMIN 3.5 gm/dL (3.4-5.0); BILIRUBIN TOTAL 0.49 mg/dL (0.3-1.2); CALCIUM 9.3 mg/dL (8.5-10.1); CREATININE SERUM 1.57 mg/dL (0.70-1.30); GFR 42.94; GLOBULINA 4.9 G/DL (2.4-3.5); POTASSIUM 4.89 mEq/L (3.5-5.1); TOTAL PROTEIN 8.4 gm/dL (6.4-8.2)
[2024-08-30 18:25] LABS: PROSTATIC SPECIFIC ANTIGEN 15.6 NG/ML (0.010-4.00)
[2024-08-30 18:33] LABS: URINE PROTEIN 100 (NEGATIVE); URINE WBC > 5548.3 uL (0.0-23.2); URINE YEAST FEW /hpf
[2024-08-30] MEDS ORDERED: levoFLOXacin IN DEXTROSE 5 % 100 ML IV SCH (18:59)
[2024-08-30] MEDS ORDERED: 0.9 % SODIUM CHLORIDE 1,000 ML IV SCH ×2 (19:15→21:45)
--- NOTE | 2024-08-30 20:56 | NUR ---
SE INSERTA GLORIA YAO ESTERILES
[2024-08-30] MEDS ORDERED: INSULIN LISPRO 1,000 UNIT/10 ML UNITS SUBCUTANEO PRN (21:45)
[2024-08-30] MEDS ORDERED: DEXTROSE 50 % IN WATER 0.5 G/ML DISP.SYRIN IV PRN (21:45)
[2024-08-30] MEDS ORDERED: ACETAMINOPHEN 500 MG GEL..CAP PO PRN (21:45)
[2024-08-31 03:26] LABS: INR 1.11; PARTIAL THROMBOPLASTIN TIME 28.1 SECONDS (22.0-34.0)
[2024-08-31 05:00] VITALS: BP 130/70
[2024-08-31] MEDS ORDERED: TAMSULOSIN HCL 0.4 MG CAP PO SCH (09:00)
[2024-08-31] MEDS ORDERED: FAMOTIDINE/PF 20 MG in 0.9 % SODIUM CHLORIDE 8 ML IV PUSH SCH (09:00)
[2024-08-31] MEDS ORDERED: LOSARTAN POTASSIUM 100 MG TABLET PO SCH (09:00)
[2024-08-31] MEDS ORDERED: FINASTERIDE 5 MG TABLET PO SCH (09:00)
[2024-08-31] MEDS ORDERED: ENOXAPARIN SODIUM 40 MG/0.4 ML SYRINGE SUBCUTANEO SCH (09:00)
[2024-08-31] MEDS ORDERED: levoFLOXacin IN DEXTROSE 5 % 100 ML IV SCH (09:00)
[2024-08-31 09:49] VITALS: BP 155/75; O2SAT 100
[2024-08-31] MEDS ORDERED: INSULIN REGULAR, HUMAN 1,000 UNIT/10 ML UNITS IV STA (13:53)
[2024-08-31] MEDS ORDERED: INSULIN GLARGINE,HUM.REC.ANLOG 1,000 UNITS/10 ML UNITS SUBCUTANEO STA (13:54)
[2024-08-31 18:14] VITALS: BP 90/54; O2SAT 97
[2024-08-31] MEDS ORDERED: FLUCONAZOLE IN NACL,ISO-OSM 400 MG/200 ML PIGGYBAG IV ONE (22:30)
[2024-09-01 00:49] VITALS: BP 97/55; O2SAT 99
[2024-09-01] MEDS ORDERED: INSULIN LISPRO 1,000 UNIT/10 ML UNITS SUBCUTANEO SCH (08:00)
[2024-09-01] MEDS ORDERED: INSULIN GLARGINE,HUM.REC.ANLOG 1,000 UNITS/10 ML UNITS SUBCUTANEO SCH (09:00)
[2024-09-01 10:10] VITALS: BP 135/64; O2SAT 99
[2024-09-01 11:00] LABS: URINE APPEARANCE Cloudy; URINE BILIRRUBIN Small (NEGATIVE); URINE BLOOD Large; URINE COLOR Red; URINE GLUCOSE Negative (NEGATIVE); URINE KETONE Negative (NEGATIVE); URINE LEUKOCYTE Large; URINE NITRATE Positive; URINE UROBILINOGEN 0.2 E.U./dl
[2024-09-01 11:04] LABS: URINE CAST 1.59 uL (0.0-1.40); URINE EPITHELIAL CELLS 102.7 uL (0.0-38.8)
[2024-09-01 12:47] LABS: URINE PROTEIN 300 (NEGATIVE); URINE RBC > 10558.9 uL (0.0-20.8); URINE WBC > 5548.3 uL (0.0-23.2)
[2024-09-01] MEDS ORDERED: AMPICILLIN SODIUM/SULBACTAM NA 3,000 MG in 0.9 % SODIUM CHLORIDE 100 ML IV SCH (17:00)
[2024-09-01 18:13] VITALS: BP 142/57
[2024-09-01] MEDS ORDERED: FLUCONAZOLE IN NACL,ISO-OSM 200 MG/100 ML PIGGYBAG IV SCH (21:00)
[2024-09-02 02:20] VITALS: BP 172/69
[2024-09-02 09:51] VITALS: BP 117/70; O2SAT 97
[2024-09-02 20:09] VITALS: BP 140/70
[2024-09-03 01:40] VITALS: BP 170/86
[2024-09-03 08:50] VITALS: BP 153/83; O2SAT 98
[2024-09-03] MEDS ORDERED: AMLODIPINE BESYLATE 5 MG TABLET PO SCH (09:00)
[2024-09-03] MEDS ORDERED: ENALAPRILAT DIHYDRATE 1.25 MG/ML VIAL IV PRN (12:15)
[2024-09-03 19:15] VITALS: BP 136/65; O2SAT 98
[2024-09-03 19:46] LABS: HEMATOCRIT 28.6 % (39.0-48.0); HEMOGLOBIN 9.7 g/dL (13-16.00); MEAN CELL VOLUME 82.3 fL (80.0-100.00); PLATELET COUNT 229 K/uL (150-450); RED BLOOD COUNT 3.47 M/uL (4.00-6.00); RED CELL DISTRIBUTION WIDTH 14.4 % (11.5-14.5)
[2024-09-03 20:15] LABS: ALBUMIN 2.8 gm/dL (3.4-5.0); BILIRUBIN TOTAL 0.33 mg/dL (0.3-1.2); CALCIUM 8.3 mg/dL (8.5-10.1); CREATININE SERUM 1.09 mg/dL (0.70-1.30); GFR 65.42; GLOBULINA 3.9 G/DL (2.4-3.5); MAGNESIUM 1.6 mg/dL (1.8-2.4); PHOSPHOROUS 3.2 mg/dL (2.5-4.9); POTASSIUM 3.5 mEq/L (3.5-5.1); TOTAL PROTEIN 6.7 gm/dL (6.4-8.2)
[2024-09-04 00:59] VITALS: BP 107/67
[2024-09-04 06:33] LABS: HEMATOCRIT 27.3 % (39.0-48.0); HEMOGLOBIN 9.4 g/dL (13-16.00); MEAN CELL VOLUME 82.2 fL (80.0-100.00); MEAN CORPUSCULAR HEMOGLOBIN 28.2 pg (27.00-32.0); MEAN CORPUSCULAR HGB CONC 34.3 g/dl (32.0-36.0); PLATELET COUNT 210 K/uL (150-450); RED BLOOD COUNT 3.32 M/uL (4.00-6.00); RED CELL DISTRIBUTION WIDTH 14.4 % (11.5-14.5)
[2024-09-04 07:29] LABS: ALBUMIN 2.8 gm/dL (3.4-5.0); BILIRUBIN TOTAL 0.31 mg/dL (0.3-1.2); CALCIUM 8.3 mg/dL (8.5-10.1); CREATININE SERUM 0.94 mg/dL (0.70-1.30); GFR 77.61; GLOBULINA 3.6 G/DL (2.4-3.5); MAGNESIUM 1.6 mg/dL (1.8-2.4); PHOSPHOROUS 2.8 mg/dL (2.5-4.9); TOTAL PROTEIN 6.4 gm/dL (6.4-8.2)
[2024-09-04 07:33] LABS: C-REACTIVE PROTEIN 1.35 MG/DL (0.00-0.29); PROSTATIC SPECIFIC ANTIGEN 7.86 NG/ML (0.010-4.00)
[2024-09-04] MEDS ORDERED: INSULIN LISPRO 1,000 UNIT/10 ML UNITS SUBCUTANEO SCH (08:00)
[2024-09-04 09:53] VITALS: BP 146/70; O2SAT 97
[2024-09-04] MEDS ORDERED: ANIDULAFUNGIN 100 MG VIAL IV NR (17:00)
[2024-09-04 18:44] VITALS: BP 160/68; O2SAT 99
[2024-09-05 02:08] VITALS: BP 135/68
[2024-09-05] MEDS ORDERED: INSULIN LISPRO 1,000 UNIT/10 ML UNITS SUBCUTANEO SCH (08:00)
[2024-09-05] MEDS ORDERED: INSULIN GLARGINE,HUM.REC.ANLOG 1,000 UNITS/10 ML UNITS SUBCUTANEO SCH (09:00)
[2024-09-05 09:05] VITALS: BP 140/70; O2SAT 98
[2024-09-05] MEDS ORDERED: ANIDULAFUNGIN 100 MG VIAL IV SCH (17:00)
[2024-09-05 17:27] VITALS: BP 151/65
[2024-09-06 01:49] VITALS: BP 133/59
[2024-09-06 09:12] VITALS: BP 111/51; O2SAT 97
[2024-09-06 19:50] VITALS: BP 110/58; O2SAT 98
[2024-09-07 02:10] VITALS: BP 131/68; O2SAT 100
[2024-09-07 09:56] VITALS: BP 162/80; O2SAT 96
== END 2024-09-07 14:26 | disposition home or self-care (01) | DRG 690 ==
LOC: ER 14:37 → SEC-K 22:23 → MEDJ 22:23
PROVIDERS: General Practice; Internal Medicine Infectious Disease; ADMIT Internal Medicine; ATTEND Internal Medicine
PROC: BW21ZZZ Computerized Tomography (CT Scan) of Abdomen and Pelvis (ICD-10-PCS; principal; 2024-08-30)
PROC: BW4GZZZ Ultrasonography of Pelvic Region (ICD-10-PCS; 2024-09-05)
DX: N39.0 Urinary tract infection, site not specified (principal); N41.0 Acute prostatitis; N17.9 Acute kidney failure, unspecified; L97.428 Non-pressure chronic ulcer of left heel and midfoot with other specified severity; I10 Essential (primary) hypertension; E11.65 Type 2 diabetes mellitus with hyperglycemia; Z79.4 Long term (current) use of insulin; L08.89 Other specified local infections of the skin and subcutaneous tissue; B95.2 Enterococcus as the cause of diseases classified elsewhere; B96.89 Other specified bacterial agents as the cause of diseases classified elsewhere; R31.9 Hematuria, unspecified; D64.9 Anemia, unspecified; Z74.01 Bed confinement status

== ENCOUNTER → 2025-03-21 | Emergency (ER) | payer OTHER ==
[~2025-03-21] VITALS: Ht 167.6 cm; Wt 72.6 kg
[~2025-03-21] MED LIST changes: +CIPRO500 MG PO
[2025-03-21 05:18] VITALS: BP 160/83; O2SAT 99
[2025-03-21 07:40] LABS: URINE APPEARANCE Cloudy; URINE BILIRRUBIN Negative (NEGATIVE); URINE BLOOD Moderate; URINE COLOR Yellow; URINE GLUCOSE Negative (NEGATIVE); URINE KETONE Negative (NEGATIVE); URINE LEUKOCYTE Large; URINE NITRATE Negative; URINE UROBILINOGEN 0.2 E.U./dl
[2025-03-21 07:46] LABS: URINE EPITHELIAL CELLS 2.5 uL (0.0-38.8); URINE RBC 124.9 uL (0.0-20.8)
[2025-03-21 08:11] LABS: URINE BACTERIA > 9821.2 uL (0.0-1933); URINE CAST 0.88 uL (0.0-1.40); URINE PROTEIN 100 (NEGATIVE)
== END | disposition home or self-care (01) ==
LOC: ER 04:31
PROVIDERS: General Practice
DX: T83.098A Other mechanical complication of other urinary catheter, initial encounter (principal); N40.0 Benign prostatic hyperplasia without lower urinary tract symptoms

== ENCOUNTER 2025-04-18 02:38 | Emergency (ER) | payer OTHER ==
[~2025-04-18] VITALS: Ht 180.3 cm; Wt 81.6 kg
[2025-04-18] MEDS ORDERED: HYDROGEN PEROXIDE 473 ML BOTTLE TOP ONE (02:50)
[2025-04-18] MEDS ORDERED: CEFTRIAXONE SODIUM 1,000 MG VIAL IM STA (03:35)
[2025-04-18] MEDS ORDERED: CEFTRIAXONE SODIUM 1,000 MG VIAL ONE (03:36)
[2025-04-18 04:29] LABS: PH,URINE 8.5 (5.0-8.0); URINE APPEARANCE Turbid; URINE BILIRRUBIN Negative (NEGATIVE); URINE BLOOD Negative; URINE COLOR Dark Yellow; URINE KETONE Negative (NEGATIVE); URINE LEUKOCYTE Large; URINE NITRATE Negative
[2025-04-18 04:56] LABS: URINE GLUCOSE 250 MG/DL (NEGATIVE); URINE PROTEIN 300 (NEGATIVE)
[2025-04-18 04:58] LABS: URINE RBC 0-3 /HPF; URINE WBC 0-2 /hpf
[2025-04-18 04:59] LABS: URINE CRYSTALS MANY /HPF; URINE EPITHELIAL CELLS 0-4 /HPF
[2025-04-18 05:00] LABS: URINE BACTERIA MANY
== END 2025-04-18 06:10 ==
LOC: ER 02:45
PROVIDERS: General Practice
DX: T83.011A Breakdown (mechanical) of indwelling urethral catheter, initial encounter (principal); I10 Essential (primary) hypertension; E11.9 Type 2 diabetes mellitus without complications; Z79.4 Long term (current) use of insulin